=== PATIENT | female | born 1980 | race Caucasian/White ===

== ENCOUNTER 2020-04-08 09:22 | Emergency (ER) | payer OTHER ==
[~2020-04-08] VITALS: Ht 160 cm; Wt 63.0 kg
== END 2020-04-08 10:45 | disposition home or self-care (01) ==
LOC: ER 09:22
DX: S80.02XA Contusion of left knee, initial encounter (principal); S80.01XA Contusion of right knee, initial encounter; W18.39XA Other fall on same level, initial encounter; Y93.89 Activity, other specified; Y92.098 Other place in other non-institutional residence as the place of occurrence of the external cause; Y99.8 Other external cause status

== ENCOUNTER 2022-10-17 16:54 | Emergency (ER) | payer OTHER ==
[~2022-10-17] VITALS: Ht 160 cm; Wt 65.8 kg
[2022-10-17] MEDS ORDERED: ALLEGRA-D 24 H1 EACH PO (17:01)
[2022-10-17] MEDS ORDERED: MONTELUKAST SOD10 MG PO (17:02)
[2022-10-18] MEDS ORDERED: KETO10TA2 PO (00:58)
[2022-10-18] MEDS ORDERED: CEPHALEXIN500 MG PO (00:58)
== END 2022-10-18 01:20 ==
LOC: ER 16:54
DX: R10.31 Right lower quadrant pain (principal); N39.0 Urinary tract infection, site not specified